=== PATIENT | male | born 1985 | race Caucasian/White ===

== ENCOUNTER 2017-07-29 19:52 | Emergency (ER) | payer BC, OTHER ==
[~2017-07-29] VITALS: Ht 182.9 cm; Wt 73.7 kg
[~2017-07-29 19:52] MED LIST: DARV PO; DIFL500T PO; Z.0.NO CURRENT MEDS
[2017-07-29 20:00] VITALS: BP 125/87; PULSE 75; RESP 16; TEMP 98.1; O2SAT 99
[2017-07-29] MEDS ORDERED: ACETAMINOPHEN/HYDROcodone 325 MG/5 MG TAB PO ONE (20:45)
--- NOTE | 2017-07-29 20:47 | PD ---
HPI Chief Complaint: Oral / Dental Pain or Problem Time Seen by Provider: 20:24 Travel History International Travel<30 days: No Contact w/Intl Traveler<30days: No Traveled to known affect area: No History of Present Illness HPI 32-year-old male presents emergency department for evaluation of left lower molar pain that started yesterday. Says he fractured his tooth resulting in this pain. Says he has been using salt water gargles, dental picks, Tylenol, and Motrin without significant improvement. Says his pain is 8/10 and seems to be radiating in the surrounding area into his jaw. He denies unusual taste. No palliative factors. Denies restriction of jaw motion or pain with opening closing of the jaw. Denies stiff neck. Denies neck pain. Says that he has a history of poor dentition and is due to have a follow-up with the dentist however, because of insurance issues has been unable to do so PFS Past Medical History Medical History: Denies Significant Hx Anxiety: Yes (NOT DIAGNOSED) Diminished Hearing: No GERD: Yes (NOT DIAGNOSED) Headaches: Yes Immunizations Current: Yes Tetanus Vaccination: < 5 Years Influenza Vaccination: No Past Surgical History Abdominal Surgery: Yes (HERNIA) Other Surgery: Yes (LT ANKLE PAIN, inguinal hernia repair) Social History Alcohol Use: Yes (OCCAISIONAL) Tobacco Use: No Substance Use: No Allergies-Medications (Allergen,Severity, Reaction): Coded Allergies: No Known Allergies (Verified Adverse Reaction, Unknown, 07/29/17) Reported Meds & Prescriptions Reported Meds & Active Scripts Active Magic Mouthwash Pediatric/Adult Liq (Lidocaine/Diphenhydr/Alum/Mg/Simeth) 60 Ml Susp 5 Ml SWISH-SPIT ACHS Each 5mL contains: Diphenydramine 4.5mg, Viscous Lidocaine 2% 10mg, Maalox Advanced Regular Strength 2.7ml Penicillin V Potassium 500 Mg Tab 500 Mg PO Q8H 7 Days Review of Systems Except as stated in HPI: all other systems reviewed are Neg Physical Exam Narrative GENERAL: Well-nourished, well-developed patient, in NAD SKIN: Focused skin assessment warm/dry. No rashes or lesions. HEAD: Normocephalic. Atraumatic. EYES: No scleral icterus. No injection or drainage. Left lower third molar-caries present, obvious fracture with half tooth missing , no fluctuance the gumline, mild tenderness to palpation of the jaw. Stable. THROAT: No pharyngeal injection, exudates, or tonsillar hypertrophy. Airway is patent. NECK: Supple, trachea midline. No JVD or lymphadenopathy. No meningismus. CARDIOVASCULAR: Regular rate and rhythm without murmurs, gallops, or rubs. RESPIRATORY: Breath sounds equal bilaterally. No accessory muscle use. No wheezes, rales, or rhonchi MUSCULOSKELETAL: No cyanosis, or edema. BACK: Nontender without obvious deformity. No CVA tenderness. Data Data Last Documented VS Vital Signs Date Time Temp Pulse Resp B/P (MAP) Pulse Ox O2 Delivery O2 Flow Rate FiO2 07/29/17 20:00 98.1 75 16 125/87 (100) 99 Orders Orders Acetamin-Hydrocod 325-5 Mg ([place] 5-325 (07/29/17 20:45) Ed Discharge Order (07/29/17 20:48) [facility] Medical Decision Making Medical Screen Exam Complete: Yes Emergency Medical Condition: Yes Differential Diagnosis Tooth fracture, abscess, pulpitis Narrative Course 32-year-old male presents emergency department for evaluation of left lower molar pain that started yesterday. Says he fractured his tooth resulting in this pain. Says he has been using salt water gargles, dental picks, Tylenol, and Motrin without significant improvement. Says his pain is 8/10 and seems to be radiating in the surrounding area into his jaw. He denies unusual taste. No palliative factors. Denies restriction of jaw motion or pain with opening closing of the jaw. Denies stiff neck. Denies neck pain. Says that he has a history of poor dentition and is due to have a follow-up with the dentist however, because of insurance issues has been unable to do so Vital signs are stable The exam findings consistent with a fractured tooth. I am concerned about a developing infection as the gum is exposed. Patient given hydrocodone for pain in the emergency department today. Patient discharged with pen VK and Magic mouthwash. Advised to follow-up with his dentist as discussed. Diagnosis Primary Impression: Tooth fracture Qualified Codes: S02.5XXB - Fracture of tooth (traumatic), initial encounter for open fracture Referrals: Dentist Patient Instructions: Acute Dental Trauma (ED), General Instructions Additional Instructions: Follow-up with a dentist as soon as possible to avoid complications. Use mouthwash as needed. Take all antibiotics as prescribed. Scripts Vnqxtkazubgksqb-Sijkyljvf-Djo-Alum-Simeth Liq (Magic Mouthwash Pediatric/Adult Liq) 60 Ml Susp 5 ML SWISH-SPIT ACHS for Mouth sores, #60 ML 0 Refills Each 5mL contains: Diphenydramine 4.5mg, Viscous Lidocaine 2% 10mg, Maalox Advanced Regular Strength 2.7ml Prov: Bassem Aldridge MD 07/29/17 Penicillin V Potassium (Penicillin V Potassium) 500 Mg Tab 500 MG PO Q8H for Infection for 7 Days, #21 TAB 0 Refills Prov: Bassem Aldridge MD 07/29/17 Disposition: 01 DISCHARGE HOME Condition: Stable Treva Armas Jul 29, 2017 20:47
[2017-07-29] MEDS ORDERED: MAGICPED SWISH-SPIT (20:48)
[2017-07-29] MEDS ORDERED: PENI500T PO (20:48)
== END 2017-07-29 21:02 | disposition home or self-care (01) ==
LOC: PHEFT 19:52
DX: S02.5XXB Fracture of tooth (traumatic), initial encounter for open fracture (principal); F41.9 Anxiety disorder, unspecified; K21.9 Gastro-esophageal reflux disease without esophagitis; X58.XXXA Exposure to other specified factors, initial encounter
CPT/HCPCS: 99283